=== PATIENT | female | born 1995 | race Caucasian/White ===

== ENCOUNTER 2017-04-06 15:30 | Emergency (ER) | payer OTHER ==
[2017-04-06 15:35] VITALS: TEMP 97.7
--- NOTE | 2017-04-06 15:49 | EDPHY ---
H & P Time Seen by Provider: 04/06/17 15:38 HPI/ROS: CHIEF COMPLAINT: Right ring and small finger laceration HISTORY OF PRESENT ILLNESS: Just before arrival was trying to cut a sweet potato and lacerated lateral surface of the right ring and small finger REVIEW OF SYSTEMS: No foreign body sensation PAST MEDICAL HISTORY: Tetanus up-to-date Social history: Student General Appearance: Alert and conversant, cooperative. Right lateral pinky has 5 x 5 mm avulsion the on the volar side. Right ring finger has 5 mm superficial laceration lateral to the nail distal to the D IP. Less than 1mm extension into nail, no visible subungual or nailbed injury. Intact 2 point discrimination capillary refill and motor function including extensor and flexor tendon Emergency Department course/MDM: Local wound care and dressing. The avulsion is best allowed to heal by secondary intention. Discussed dressing versus sutures with the ring finger laceration I recommended wound care and told her I do not recommend sutures for the superficial laceration, patient consents. She tells me she would prefer to avoid sutures if clinically indicated. Smoking Status: Never smoked Constitutional: Initial Vital Signs Temperature (C) 36.5 C 04/06/17 15:32 Heart Rate 81 04/06/17 15:32 Respiratory Rate 18 04/06/17 15:32 Blood Pressure 115/74 04/06/17 15:32 O2 Sat (%) 99 04/06/17 15:32 O2 Delivery Mode Room Air Allergies/Adverse Reactions: No Known Allergies Allergy (Unverified 04/06/17 15:32) Home Medications: Medication Instructions Recorded NK [No Known Home Meds] 04/06/17 MDM/Departure - Depart Disposition: Home, Routine, Self-Care Clinical Impression: Ring and small finger laceration Condition: Good Instructions: Acute Wounds (ED) Additional Instructions: Wound care as discussed. Referrals: Ever Bell MD [Medical Doctor] - As per Instructions (Hand specialist if you have any trouble with healing process.)
[2017-04-06 16:15] VITALS: BP 110/70; PULSE 87; RESP 14; O2SAT 98
== END 2017-04-06 16:37 | disposition home or self-care (01) ==
DX: S61.214A Laceration without foreign body of right ring finger without damage to nail, initial encounter (principal); S61.216A Laceration without foreign body of right little finger without damage to nail, initial encounter; W27.4XXA Contact with kitchen utensil, initial encounter

== ENCOUNTER 2018-03-03 17:18 | Emergency (ER) | payer OTHER ==
--- NOTE | 2018-03-03 17:51 | EDPHY ---
H & P Smoking Status: Never smoked Time Seen by Provider: 03/03/18 17:32 HPI/ROS: CHIEF COMPLAINT: Palpitations and chest pressure yesterday evening HISTORY OF PRESENT ILLNESS: Patient is a 22-year-old female here with concern for chest pressure and palpitations wall doing cocaine, taking Adderall and drinking alcohol yesterday evening. She denies any cardiac history and currently denies any symptoms. Last use was around midnight yesterday evening. She reports she does not use any drugs or alcohol chronically but has been on a 3 day binge. States that she did cooking yesterday evening around midnight and then felt her heart racing and then felt very anxious and short of breath and had touch chest pressure sensation. When doing cocaine previously she had never experiences. She has no history of anxiety, thyroid problems, DVT or pulmonary embolism, or palpitations. She has not had return of any of the symptoms today but wanted to make sure that her heart was okay so came to the ER today. REVIEW OF SYSTEMS: Constitutional: No fever, no chills. Eyes: No discharge. ENT: No sore throat. Cardiovascular: + chest pain, + palpitations. Respiratory: No cough, no shortness of breath. Gastrointestinal: No abdominal pain, no vomiting. Genitourinary: No hematuria. Musculoskeletal: No back pain. Skin: No rashes. Neurological: No headache. (Duran Diaz) Physical Exam: General Appearance: Alert and no distress. Eyes: Pupils equal and round no injection. Respiratory: Chest is nontender, lungs are clear to auscultation. Cardiac: regular rate and rhythm. Gastrointestinal: Abdomen is soft and nontender, no masses, bowel sounds normal. Musculoskeletal: Neck is supple and nontender. Extremities have full range of motion and are nontender. Skin: No rashes or lesions. (Duran Diaz) Constitutional: Initial Vital Signs Temperature (C) 36.7 C 03/03/18 17:21 Heart Rate 91 03/03/18 17:21 Respiratory Rate 18 03/03/18 17:21 Blood Pressure 115/86 H 03/03/18 17:21 O2 Sat (%) 97 03/03/18 17:21 O2 Delivery Mode Room Air Allergies/Adverse Reactions: No Known Allergies Allergy (Verified 03/03/18 17:20) Home Medications: Medication Instructions Recorded NK [No Known Home Meds] 04/06/17 Medical Decision Making ED Course/Re-evaluation: Patient here with concern for palpitations and chest pressure yesterday evening while taking cocaine and using alcohol and Adderall. Chest x-ray, EKG and troponin are all negative for acute cardiopulmonary disease. We had a long discussion about polysubstance abuse and use of amphetamines and patient understands the risk of with cocaine use and amphetamine use.. She is asymptomatic with normal vital signs at time of discharge. No evidence of WPW, SVT, elevated troponin or other cardiac injury at this time. (Duran Diaz) - Data Points Laboratory Results: Laboratory Results 03/03/18 17:35 03/03/18 17:35 Point of Care Test Results: Chemistry 03/03/18 17:49 POC Troponin I 0.00 ng/mL ng/mL (0.00-0.08) Departure - Departure Disposition: Home, Routine, Self-Care Clinical Impression: Palpitations, Cocaine use Condition: Good Instructions: Heart Palpitations (ED), Cocaine Abuse (ED) Additional Instructions: You're EKG and blood work shows no injury to her heart or lungs today. I do suggest that you do not use cocaine or other people's prescription medications including Adderall in the future. Follow-up in the ER if he have any worsening or worrisome symptoms. Referrals: NONE *PRIMARY CARE P,. [Primary Care Provider] - As per Instructions
[2018-03-03 17:54] LABS: PLATELET COUNT 301 10^3/uL (150-400)
[2018-03-03 18:39] VITALS: BP 129/88
--- NOTE | 2018-03-11 05:47 | CPEKG ---
Test Reason : OPEN Blood Pressure : / mmHG Vent. Rate : 078 BPM Atrial Rate : 075 BPM P-R Int : 157 ms QRS Dur : 074 ms QT Int : 397 ms P-R-T Axes : 055 043 061 degrees QTc Int : 453 ms Sinus rhythm Confirmed by Bean Miller ([id number]) on 03/11/2018 5:46:59 AM Referred By: Confirmed By:Bean Miller
== END 2018-03-03 18:38 | disposition home or self-care (01) ==
DX: R00.0 Tachycardia, unspecified (principal); F14.90 Cocaine use, unspecified, uncomplicated
CPT/HCPCS: 84484-PO